=== PATIENT | male | born 1985 | race African-American/Black ===

== ENCOUNTER 2019-09-21 15:42 | Inpatient (IN) | payer SELFPAY ==
[~2019-09-21] VITALS: Ht 172.7 cm; Wt 85.7 kg
[2019-09-21] MEDS ORDERED: IV NORMAL SALINE 1000ML BAG 1,000 ML IV ONE (16:30)
[2019-09-21] MEDS ORDERED: MORPHINE SULFATE 4 MG/ML VIAL. IV ONE (16:30)
[2019-09-21] MEDS ORDERED: ONDANSETRON PF 4 MG/2 ML VIAL. IV ONE (16:30)
[2019-09-21] MEDS ORDERED: CLINDAMYCIN 600MG PREMIX 50 ML IV ONE (16:30)
[2019-09-21] MEDS ORDERED: ACETAMINOPHEN 500 MG TABLET PO ONE (16:30)
--- NOTE | 2019-09-21 16:41 | PHYS DOC ---
Past Medical History Past Medical History: No Pertinent History Alcohol Use: None Drug Use: None Adult General Chief Complaint Chief Complaint: ABSCESS HPI HPI Patient is a 34 year old AA who presents to the ER via EMS. Patient states that yesterday he noticed an abscess developing on his left buttock. Patient states he went to sleep in the sleeper of his semi-and when he woke up this morning around 10 AM felt like he was shaking, dizzy, lightheaded, weak all over, and his entire body ached. He has not taken any medication or to arrival. Patient states that this time he also feels like he has a fever. He currently rates his pain a 9 out of 10 on the pain scale, he denies any alleviating factors. Patient states he has had a small amount of pus drainage from the abscess on his buttock today. He currently denies any chest pain, shortness of breath, palpitations, nausea, vomiting, diarrhea, or abdominal pain. He denies any illicit drug use. All other ROS is neg unless otherwise noted in HPI. Review of Systems Review of Systems See Above Current Medications Current Medications Current Medications Medications (Trade) Dose Ordered Sig/Louis Start Time Stop Time Status Last Admin Dose Admin Acetaminophen (Tylenol) 1,000 mg 1X ONCE 09/21/19 16:30 09/21/19 16:31 DC 09/21/19 16:58 1,000 MG Clindamycin Phosphate 50 ml @ 100 mls/hr 1X ONCE 09/21/19 16:30 09/21/19 16:59 DC 09/21/19 16:56 100 MLS/HR Iohexol (Omnipaque 300 Mg/ml) 75 ml 1X ONCE 09/21/19 18:00 09/21/19 18:01 DC 09/21/19 18:13 75 ML Levofloxacin/ Dextrose 150 ml @ 100 mls/hr 1X ONCE 09/21/19 16:30 09/21/19 17:59 DC 09/21/19 17:26 100 MLS/HR Morphine Sulfate (Morphine Sulfate) 4 mg 1X ONCE 09/21/19 16:30 09/21/19 16:31 DC 09/21/19 16:53 4 MG Ondansetron HCl (Zofran) 4 mg 1X ONCE 09/21/19 16:30 09/21/19 16:31 DC 09/21/19 16:53 4 MG Sodium Chloride 1,000 ml @ 1,000 mls/hr 1X ONCE 09/21/19 16:30 09/21/19 17:29 DC 09/21/19 16:52 1,000 MLS/HR Allergies Allergies Allergies Coded Allergies Type Severity Reaction Last Updated Verified Penicillins Allergy Intermediate 09/21/19 Yes Physical Exam Physical Exam See Above Constitutional: Well developed, well nourished, moderate distress, ill appearance. [] HENT: Normocephalic, atraumatic, bilateral external ears normal, oropharynx moist, no oral exudates, nose normal. [] Eyes: PERRLA, EOMI, conjunctiva normal, no discharge. [] Neck: Normal range of motion, no stridor. [] Cardiovascular:Heart rate regular tachycardic rhythm, no murmur [] Lungs & Thorax: Bilateral breath sounds clear to auscultation, Respirations even and unlabored, no retractions, no respiratory distress [] Skin: Warm, dry; abscess noted to left buttock with central open area draining purulent fluid, area is warm, tender, and fluctuant concerning for perirectal a bscess Extremities: No cyanosis, ROM intact, no edema. [] Neurologic: Alert and oriented X 3, no focal deficits noted. [] Psychologic: Affect anxious, judgement normal, mood normal. [] Current Patient Data Vital Signs Vital Signs Date Time Temp Pulse Resp B/P (MAP) Pulse Ox O2 Delivery O2 Flow Rate FiO2 09/21/19 18:08 106 116/58 (77) 100 Nasal Cannula 2.0 09/21/19 15:42 100.9 18 100.9 Lab Values Laboratory Tests Test 09/21/19 16:35 09/21/19 16:55 White Blood Count 17.5 x10^3/uL (4.0-11.0) H Red Blood Count 4.24 x10^6/uL (4.30-5.70) L Hemoglobin 12.7 g/dL (13.0-17.5) L Hematocrit 37.5 % (39.0-53.0) L Mean Corpuscular Volume 88 fL (79-100) Mean Corpuscular Hemoglobin 30 pg (25-35) Mean Corpuscular Hemoglobin Concent 34 g/dL (31-37) Red Cell Distribution Width 13.1 % (11.5-14.5) Platelet Count 214 x10^3/uL (140-400) Neutrophils (%) (Auto) 89 % (31-73) H Lymphocytes (%) (Auto) 5 % (24-48) L Monocytes (%) (Auto) 5 % (0-9) Eosinophils (%) (Auto) 0 % (0-3) Basophils (%) (Auto) 0 % (0-3) Neutrophils # (Auto) 15.6 x10^3/uL (1.8-7.7) H Lymphocytes # (Auto) 0.9 x10^3/uL (1.0-4.8) L Monocytes # (Auto) 0.9 x10^3/uL (0.0-1.1) Eosinophils # (Auto) 0.0 x10^3/uL (0.0-0.7) Basophils # (Auto) 0.0 x10^3/uL (0.0-0.2) Segmented Neutrophils % 74 % (35-66) H Band Neutrophils % 17 % (0-9) H Lymphocytes % 8 % (24-48) L Monocytes % 1 % (0-10) Toxic Granulation Slight Platelet Estimate Adequate (ADEQUATE) Sodium Level 132 mmol/L (136-145) L Potassium Level 3.5 mmol/L (3.5-5.1) Chloride Level 100 mmol/L (98-107) Carbon Dioxide Level 25 mmol/L (21-32) Anion Gap 7 (6-14) Blood Urea Nitrogen 13 mg/dL (8-26) Creatinine 1.3 mg/dL (0.7-1.3) Estimated GFR (Cockcroft-Gault) 76.5 BUN/Creatinine Ratio 10 (6-20) Glucose Level 121 mg/dL (70-99) H Lactic Acid Level 1.5 mmol/L (0.4-2.0) Calcium Level 8.7 mg/dL (8.5-10.1) Total Bilirubin 1.0 mg/dL (0.2-1.0) Aspartate Amino Transferase (AST) 22 U/L (15-37) Alanine Aminotransferase (ALT) 18 U/L (16-63) Alkaline Phosphatase 52 U/L (46-116) Total Protein 8.8 g/dL (6.4-8.2) H Albumin 3.5 g/dL (3.4-5.0) Albumin/Globulin Ratio 0.7 (1.0-1.7) L Influenza Type A Antigen Negative (NEGATIVE) Influenza Type B Antigen Negative (NEGATIVE) Laboratory Tests 09/21/19 16:35 Laboratory Tests 09/21/19 16:35 EKG EKG 1552- Sinus tach, rate 104, no STEMI read by Dr. Van. [] Radiology/Procedures Radiology/Procedures PROCEDURE: CT ABD PELV W/ IV CONTRST ONLY CT ABD PELV W/ IV CONTRST ONLY Indication: Left buttock abscess. Exposure: One or more of the following individualized dose reduction techniques were utilized for this examination: 1. Automated exposure control 2. Adjustment of the mA and/or kV according to patient size 3. Use of iterative reconstruction technique. Technique: Intravenous contrast was given. No oral contrast per request. There is an: None FINDINGS: Lung bases are clear. Tiny low-density lesion in the anterior right lobe of liver measures less than 1 cm, and is too small to characterize but would most commonly be benign in the absence of risk factors. Spleen upper limits normal in size measuring 12 cm. Pancreas is difficult to distinguish from adjacent unopacified bowel loops but no obvious abnormality. No evidence of adrenal mass. Kidneys demonstrate symmetric enhancement without hydronephrosis or focal mass. No calcified gallstone. Aorta is nonaneurysmal. Incidentally noted is a left retroaortic renal vein. No evidence of pathologic lymph node enlargement. Stomach is not distended. No significant small bowel distention. No evidence of acute colitis. The appendix is not clearly seen. No significant ascites or pneumoperitoneum. Urinary bladder is not adequately distended for evaluation but no gross abnormality. No evidence of pelvic mass. Ill-defined stranding within the left gluteal fat along the midline. No evidence of an organized fluid collection or drainable abscess. Wall thickening of the rectum. Vertebral body height and alignment are intact. IMPRESSION: 1. Rectal wall thickening, could be due to acute inflammation/infection versus chronic. Inflammatory type stranding in the left gluteal subcutaneous fat along the midline, suspicious for cellulitis. No evidence of drainable abscess. 2. Subcentimeter hepatic lesion, nonspecific but would commonly be benign in the absence of other risk factor. [] Course & Med Decision Making Course & Med Decision Making Pertinent Labs and Imaging studies reviewed. (See chart for details) CBC: WBC 17.5, Hgb 12.7, Hct 37.5; CMP Na 132, gluc 121, lactic acid 1.5; influenza negative Pt meets SIRS criteria but not severe sepsis, lactic acid not elevated. VSS. Pt given 750 mg of levaquin IV and 600 mg of Clindamycin in the ER. Also given 1L NS, 4 mg of zofran, and 4 mg of Morphine, and 1 gm of PO Tylenol CT: 1. Rectal wall thickening, could be due to acute inflammation/infection versus chronic. Inflammatory type stranding in the left gluteal subcutaneous fat along the midline, suspicious for cellulitis. No evidence of drainable abscess. 182- Spoke with Dr. Ventura who is the admitting physician, and care was assumed following discussion of patient. Will order a surgical consult. Patient's vital signs stable. Patient remains febrile, ill-appearing, respirations even and unlabored. Patient will be admitted to the med/surg floor. Patient's case and plan of care also discussed with Dr. Roberts and Dr. Van 1831- Spoke with Dr. Garcia and advised of patient, will keep NPO after midnight. ] Dragon Disclaimer Dragon Disclaimer This electronic medical record was generated, in whole or in part, using a voice recognition dictation system. 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
[2019-09-21 16:47] LABS: BASO % 0 % (0-3); EOS % 0 % (0-3); HEMATOCRIT 37.5 % (39.0-53.0); HEMOGLOBIN 12.7 g/dL (13.0-17.5); LYMPH # 0.9 x10^3/uL (1.0-4.8); LYMPH % 5 % (24-48); MEAN CORPUSCULAR HEMOGLOBIN 30 pg (25-35); MEAN CORPUSCULAR HGB CONC 34 g/dL (31-37); MEAN CORPUSCULAR VOLUME 88 fL (79-100); MONO # 0.9 x10^3/uL (0.0-1.1); MONO % 5 % (0-9); NEUT # 15.6 x10^3/uL (1.8-7.7); NEUT % 89 % (31-73); PLATELET COUNT 214 x10^3/uL (140-400); RED BLOOD COUNT 4.24 x10^6/uL (4.30-5.70); RED CELL DISTRIBUTION WIDTH 13.1 % (11.5-14.5); WHITE BLOOD COUNT 17.5 x10^3/uL (4.0-11.0)
[2019-09-21 17:08] LABS: ALBUMIN 3.5 g/dL (3.4-5.0); ALBUMIN/GLOBULIN RATIO 0.7 (1.0-1.7); CALCIUM 8.7 mg/dL (8.5-10.1); CREATININE 1.3 mg/dL (0.7-1.3); GFR 76.5; POTASSIUM 3.5 mmol/L (3.5-5.1); TOTAL PROTEIN 8.8 g/dL (6.4-8.2)
[2019-09-21 17:12] LABS: % BANDS 17 % (0-9); % LYMPHS 8 % (24-48); % MONOS 1 % (0-10); % SEGS 74 % (35-66)
[2019-09-21 17:13] LABS: PLT ESTIMATE ADEQUATE (ADEQUATE); TOXIC GRANULATION SLIGHT
[2019-09-21 17:20] LABS: INFLUENZA A PATIENT NEGATIVE (NEGATIVE); INFLUENZA B PATIENT NEGATIVE (NEGATIVE)
[2019-09-21] MEDS ORDERED: IOHEXOL 300 MG/ML 100ML VIAL. IV ONE (18:00)
--- NOTE | 2019-09-21 18:31 | RAD ---
CT ABD PELV W/ IV CONTRST ONLY Indication: Left buttock abscess. Exposure: One or more of the following individualized dose reduction techniques were utilized for this examination: 1. Automated exposure control 2. Adjustment of the mA and/or kV according to patient size 3. Use of iterative reconstruction technique. Technique: Intravenous contrast was given. No oral contrast per request. There is an: None FINDINGS: Lung bases are clear. Tiny low-density lesion in the anterior right lobe of liver measures less than 1 cm, and is too small to characterize but would most commonly be benign in the absence of risk factors. Spleen upper limits normal in size measuring 12 cm. Pancreas is difficult to distinguish from adjacent unopacified bowel loops but no obvious abnormality. No evidence of adrenal mass. Kidneys demonstrate symmetric enhancement without hydronephrosis or focal mass. No calcified gallstone. Aorta is nonaneurysmal. Incidentally noted is a left retroaortic renal vein. No evidence of pathologic lymph node enlargement. Stomach is not distended. No significant small bowel distention. No evidence of acute colitis. The appendix is not clearly seen. No significant ascites or pneumoperitoneum. Urinary bladder is not adequately distended for evaluation but no gross abnormality. No evidence of pelvic mass. Ill-defined stranding within the left gluteal fat along the midline. No evidence of an organized fluid collection or drainable abscess. Wall thickening of the rectum. Vertebral body height and alignment are intact. IMPRESSION: 1. Rectal wall thickening, could be due to acute inflammation/infection versus chronic. Inflammatory type stranding in the left gluteal subcutaneous fat along the midline, suspicious for cellulitis. No evidence of drainable abscess. 2. Subcentimeter hepatic lesion, nonspecific but would commonly be benign in the absence of other risk factor. Electronically signed by: Gregory Castro MD (09/21/2019 6:28 PM) [facility]
[2019-09-21] MEDS ORDERED: ONDANSETRON PF 4 MG/2 ML VIAL. IV PRN (19:00)
[2019-09-21 19:12] LABS: BILIRUBIN,URINE NEGATIVE (NEG); CLARITY,URINE CLEAR; COLOR,URINE YELLOW; NITRITE,URINE NEGATIVE (NEG); PH,URINE 8.5; PROTEIN,URINE NEGATIVE (NEG-TRACE)
[2019-09-21 19:19] LABS: BARBITURATES NEG (NEG); BENZODIAZEPINES NEG (NEG); CANNABINOIDS NEG (NEG); COCAINE NEG (NEG); METHADONE NEG (NEG); OPIATES POS (NEG); PHENCYCLIDINE NEG (NEG)
[2019-09-21 19:22] LABS: AMPHETAMINE/METHAMPHETAMINE NEG (NEG); BACTERIA,URINE 0 /HPF (0-FEW); RBC,URINE OCC /HPF (0-2); SQUAMOUS EPITHELIAL CELL,UR OCC /LPF
[2019-09-21 19:40] VITALS: BP 114/70
[2019-09-21] MEDS: MORPHINE SULFATE 4 MG/ML VIAL. IV PRN (20:16)
--- NOTE | 2019-09-21 20:48 | NUR ---
The patient, VITALIY HERNÁNDEZ, 34 y/o, M admitted by YOHANA BETH MD, was given written information regarding hospital policies, unit procedures and contact persons. Pt. arrived on unit by wheelchair from ER. He is A&Ox4, on 2L NC but took it off when he got in bed. VSS. Call light within reach and bed in lowest position. Admission assessment done at this time. Will continue to monitor. Addendum: 09/21/19 at 2049 by HUGO YORK RN Pt. arrived at 1949.
[2019-09-21] MEDS: IV NORMAL SALINE 1000ML BAG 1,000 ML IV SCH (22:49)
[2019-09-21] MEDS: NICOTINE 7MG PATCH. TD SCH (22:49)
[2019-09-21 23:00] VITALS: BP 96/49
[2019-09-21] MEDS: CLINDAMYCIN 600MG PREMIX 50 ML IV SCH (23:33)
[2019-09-22] VITALS (13 sets, daily range): BP systolic 82–137; BP diastolic 38–97
[2019-09-22] MEDS: MORPHINE SULFATE 4 MG/ML VIAL. IV PRN ×3 (00:06→08:57)
--- NOTE | 2019-09-22 03:50 | NUR ---
Pt. had positive sepsis screen d/t low blood pressure. Sepsis screen protocol was started in ER. Blood pressure came up after about 20 minutes. Will continue to monitor.
[2019-09-22] MEDS: CLINDAMYCIN 600MG PREMIX 50 ML IV SCH (05:20)
[2019-09-22] MEDS: ACETAMINOPHEN 325 MG TABLET. PO PRN ×2 (05:21→20:29)
[2019-09-22] MEDS: IV NORMAL SALINE 1000ML BAG 1,000 ML IV SCH ×3 (05:22→14:06)
--- NOTE | 2019-09-22 07:50 | NUR ---
Pt.'s pharmacy is [facility] [place] [address]. RN was unable to find it in registry.
[2019-09-22] MEDS: NICOTINE 7MG PATCH. TD SCH (08:57)
[2019-09-22] MEDS ORDERED: IV RINGERS,LACTATED 1000ML 1,000 ML IV SCH (08:57)
[2019-09-22] MEDS ORDERED: HYDROmorphone 2 MG/ML VIAL IV PRN (09:00)
[2019-09-22] MEDS ORDERED: MORPHINE SULFATE 2 MG/ML VIAL. IV PRN (09:00)
[2019-09-22] MEDS ORDERED: FLU VAX QS 2019-20 (36MOS+)/PF 0.5 ML SYRINGE. VAX IM ONE (09:00)
[2019-09-22] MEDS ORDERED: PROCHLORPERAZINE 10 MG/2 ML VIAL. IV PRN (09:00)
[2019-09-22] MEDS ORDERED: fentaNYL PF VIAL 100 MCG/2 ML VIAL IV PRN ×2 (09:00)
[2019-09-22] MEDS ORDERED: IV NORMAL SALINE 1000ML BAG 2,040 ML IV SCH (09:07)
--- NOTE | 2019-09-22 09:08 | PDOC1 ---
History and Physical Date of Admission Date of Admission DATE: 09/22/19 TIME: 09:03 Identification/Chief Complaint Chief Complaint seen in er , 34 year old AA who presents to the ER via EMS. Patient states that on 09/20 he noticed an abscess developing on his left buttock. Patient states he went to sleep in the sleeper of his semi-and when he woke up 09/21 around 10 AM felt like he was shaking, dizzy, lightheaded, weak all over, and his entire body ached. He has not taken any medication or to arrival. Patient states that this time he also feels like he has a fever to OR TODAY FOR possible drainage of abscess Past Medical History Past Medical History Past Medical History Past Medical History: No Pertinent History Alcohol Use: None Drug Use: None Family History Family History: Hypertension Social History Smoke: <1 pack per day ALCOHOL: occassional Drugs: None Current Problem List Problem List Problems Medical Problems: (1) Cellulitis and abscess of buttock Status: Acute (2) Fever Status: Acute (3) Sepsis Status: Acute Current Medications Current Medications Current Medications Levofloxacin/ Dextrose 150 ml @ 100 mls/hr 1X ONCE IV Last administered on 09/21/19at 17:26; Start 09/21/19 at 16:30; Stop 09/21/19 at 17:59; Status DC Clindamycin Phosphate 50 ml @ 100 mls/hr 1X ONCE IV Last administered on 09/21/19at 16:56; Start 09/21/19 at 16:30; Stop 09/21/19 at 16:59; Status DC Morphine Sulfate (Morphine Sulfate) 4 mg 1X ONCE IV Last administered on 09/21/19at 16:53; Start 09/21/19 at 16:30; Stop 09/21/19 at 16:31; Status DC Acetaminophen (Tylenol) 1,000 mg 1X ONCE PO Last administered on 09/21/19at 16:58; Start 09/21/19 at 16:30; Stop 09/21/19 at 16:31; Status DC Sodium Chloride 1,000 ml @ 1,000 mls/hr 1X ONCE IV Last administered on 09/21at 16:52; Start 09/21/19 at 16:30; Stop 09/21/19 at 17:29; Status DC Ondansetron HCl (Zofran) 4 mg 1X ONCE IV Last administered on 09/21/19at 16:53; Start 09/21/19 at 16:30; Stop 09/21/19 at 16:31; Status DC Iohexol (Omnipaque 300 Mg/ml) 75 ml 1X ONCE IV Last administered on 09/21/19at 18:13; Start 09/21/19 at 18:00; Stop 09/21/19 at 18:01; Status DC Ondansetron HCl (Zofran) 4 mg PRN Q8HRS PRN IV NAUSEA/VOMITING Last administered on 09/22/19at 05:21; Start 09/21/19 at 19:00; Stop 09/22/19 at 18:59 Morphine Sulfate (Morphine Sulfate) 4 mg PRN Q2HR PRN IV PAIN Last administered on 09/22/19at 08:57; Start 09/21/19 at 19:00; Stop 09/22/19 at 18:59 Influenza Virus Vaccine Quadrival (Afluria Quad 2019-20 (3yr Up) Syringe) 0.5 ml ONCE ONCE VAX IM ; Start 09/22/19 at 09:00; Stop 09/22/19 at 09:01; Status DC Clindamycin Phosphate 50 ml @ 100 mls/hr Q6HRS IV Last administered on 09/22/19at 05:20; Start 09/22/19 at 00:00 Levofloxacin/ Dextrose 150 ml @ 100 mls/hr Q24H IV ; Start 09/22/19 at 17:30 Sodium Chloride 1,000 ml @ 125 mls/hr Q8H IV Last administered on 09/22/19at 05:22; Start 09/21/19 at 21:00 Nicotine (Nicoderm Cq 7mg) 1 patch DAILY TD Last administered on 09/22/19at 08:57; Start 09/21/19 at 21:00 Acetaminophen (Tylenol) 650 mg PRN Q6HRS PRN PO fever Last administered on 09/22/19at 05:21; Start 09/22/19 at 04:30 Fentanyl Citrate (Fentanyl 2ml Vial) 25 mcg PRN Q5MIN PRN IV MILD PAIN 1-3; Start 09/22/19 at 09:00; Stop 09/23/19 at 08:59 Fentanyl Citrate (Fentanyl 2ml Vial) 50 mcg PRN Q5MIN PRN IV MODERATE TO SEVERE PAIN; Start 09/22/19 at 09:00; Stop 09/23/19 at 08:59; Status UNV Morphine Sulfate (Morphine Sulfate) 1 mg PRN Q10MIN PRN IV SEVERE PAIN 7-10; Start 09/22/19 at 09:00; Stop 09/23/19 at 08:59; Status UNV Ringer's Solution 1,000 ml @ 30 mls/hr Q24H IV ; Start 09/22/19 at 08:57; Stop 09/22/19 at 20:56; Status UNV Hydromorphone HCl (Dilaudid) 0.5 mg PRN Q10MIN PRN IV SEV PAIN, Second choice; Start 09/22/19 at 09:00; Stop 09/23/19 at 08:59; Status UNV Prochlorperazine Edisylate (Compazine) 5 mg PACU PRN PRN IV NAUSEA, MRX1; Start 09/22/19 at 09:00; Stop 09/23/19 at 08:59; Status UNV Active Scripts Active Reported No Known Medications Prior To Admisstion (Info) Each 1 Each MC 1X Allergies Allergies: Coded Allergies: Penicillins (Verified Allergy, Intermediate, 09/21/19) Physical Exam Physical Exam HENT: Normocephalic, atraumatic, bilateral external ears normal, oropharynx moist, no oral exudates, nose normal. [] Eyes: PERRLA, EOMI, conjunctiva normal, no discharge. [] Neck: Normal range of motion, no stridor. [] Cardiovascular:Heart rate regular tachycardic rhythm, no murmur [] Lungs & Thorax: Bilateral breath sounds clear to auscultation, Respirations even and unlabored, no retractions, no respiratory distress [] Skin: Warm, dry; abscess noted to left buttock with central open area draining purulent fluid, area is warm, tender, and fluctuant concerning for perirectal abscess Extremities: No cyanosis, ROM intact, no edema. [] Neurologic: Alert and oriented X 3, no focal deficits noted. [] Psychologic: Affect anxious, judgement normal, mood normal. [] General: Alert, Oriented X3, Cooperative Lungs: Clear to auscultation Heart: RRR Breasts: Not examined Abdomen: Soft Rectal Exam: not examined Extremities: No cyanosis, No edema Neuro: Normal speech, Cranial nerves 3-12 NL Psych/Mental Status: Mental status NL, Mood NL Vitals Vitals Vital Signs Date Time Temp Pulse Resp B/P (MAP) Pulse Ox O2 Delivery O2 Flow Rate FiO2 09/22/19 08:57 20 100 Room Air 09/22/19 07:00 99.0 62 87/46 (60) 99.0 09/21/19 19:38 2.0 Labs Labs Laboratory Tests Test 09/21/19 16:35 09/21/19 16:55 09/21/19 19:05 White Blood Count 17.5 x10^3/uL (4.0-11.0) Red Blood Count 4.24 x10^6/uL (4.30-5.70) Hemoglobin 12.7 g/dL (13.0-17.5) Hematocrit 37.5 % (39.0-53.0) Mean Corpuscular Volume 88 fL (79-100) Mean Corpuscular Hemoglobin 30 pg (25-35) Mean Corpuscular Hemoglobin Concent 34 g/dL (31-37) Red Cell Distribution Width 13.1 % (11.5-14.5) Platelet Count 214 x10^3/uL (140-400) Neutrophils (%) (Auto) 89 % (31-73) Lymphocytes (%) (Auto) 5 % (24-48) Monocytes (%) (Auto) 5 % (0-9) Eosinophils (%) (Auto) 0 % (0-3) Basophils (%) (Auto) 0 % (0-3) Neutrophils # (Auto) 15.6 x10^3/uL (1.8-7.7) Lymphocytes # (Auto) 0.9 x10^3/uL (1.0-4.8) Monocytes # (Auto) 0.9 x10^3/uL (0.0-1.1) Eosinophils # (Auto) 0.0 x10^3/uL (0.0-0.7) Basophils # (Auto) 0.0 x10^3/uL (0.0-0.2) Segmented Neutrophils % 74 % (35-66) Band Neutrophils % 17 % (0-9) Lymphocytes % 8 % (24-48) Monocytes % 1 % (0-10) Toxic Granulation Slight Platelet Estimate Adequate (ADEQUATE) Sodium Level 132 mmol/L (136-145) Potassium Level 3.5 mmol/L (3.5-5.1) Chloride Level 100 mmol/L (98-107) Carbon Dioxide Level 25 mmol/L (21-32) Anion Gap 7 (6-14) Blood Urea Nitrogen 13 mg/dL (8-26) Creatinine 1.3 mg/dL (0.7-1.3) Estimated GFR (Cockcroft-Gault) 76.5 BUN/Creatinine Ratio 10 (6-20) Glucose Level 121 mg/dL (70-99) Lactic Acid Level 1.5 mmol/L (0.4-2.0) Calcium Level 8.7 mg/dL (8.5-10.1) Total Bilirubin 1.0 mg/dL (0.2-1.0) Aspartate Amino Transf (AST/SGOT) 22 U/L (15-37) Alanine Aminotransferase (ALT/SGPT) 18 U/L (16-63) Alkaline Phosphatase 52 U/L (46-116) Total Protein 8.8 g/dL (6.4-8.2) Albumin 3.5 g/dL (3.4-5.0) Albumin/Globulin Ratio 0.7 (1.0-1.7) Influenza Type A Antigen Negative (NEGATIVE) Influenza Type B Antigen Negative (NEGATIVE) Urine Collection Type Unknown Urine Color Yellow Urine Clarity Clear Urine pH 8.5 Urine Specific Brumley 1.020 Urine Protein Negative mg/dL (NEG-TRACE) Urine Glucose (UA) Negative mg/dL (NEG) Urine Ketones (Stick) Trace mg/dL (NEG) Urine Blood Negative (NEG) Urine Nitrite Negative (NEG) Urine Bilirubin Negative (NEG) Urine Urobilinogen Dipstick 1.0 mg/dL (0.2 mg/dL) Urine Leukocyte Esterase Small (NEG) Urine RBC Occ /HPF (0-2) Urine WBC 5-10 /HPF (0-4) Urine Squamous Epithelial Cells Occ /LPF Urine Bacteria 0 /HPF (0-FEW) Urine Mucus Slight /LPF Urine Opiates Screen Pos (NEG) Urine Methadone Screen Neg (NEG) Urine Barbiturates Neg (NEG) Urine Phencyclidine Screen Neg (NEG) Urine Amphetamine/Methamphetamine Neg (NEG) Urine Benzodiazepines Screen Neg (NEG) Urine Cocaine Screen Neg (NEG) Urine Cannabinoids Screen Neg (NEG) Urine Ethyl Alcohol Neg (NEG) Laboratory Tests Test 09/21/19 16:35 09/21/19 16:55 09/21/19 19:05 White Blood Count 17.5 x10^3/uL (4.0-11.0) Red Blood Count 4.24 x10^6/uL (4.30-5.70) Hemoglobin 12.7 g/dL (13.0-17.5) Hematocrit 37.5 % (39.0-53.0) Mean Corpuscular Volume 88 fL (79-100) Mean Corpuscular Hemoglobin 30 pg (25-35) Mean Corpuscular Hemoglobin Concent 34 g/dL (31-37) Red Cell Distribution Width 13.1 % (11.5-14.5) Platelet Count 214 x10^3/uL (140-400) Neutrophils (%) (Auto) 89 % (31-73) Lymphocytes (%) (Auto) 5 % (24-48) Monocytes (%) (Auto) 5 % (0-9) Eosinophils (%) (Auto) 0 % (0-3) Basophils (%) (Auto) 0 % (0-3) Neutrophils # (Auto) 15.6 x10^3/uL (1.8-7.7) Lymphocytes # (Auto) 0.9 x10^3/uL (1.0-4.8) Monocytes # (Auto) 0.9 x10^3/uL (0.0-1.1) Eosinophils # (Auto) 0.0 x10^3/uL (0.0-0.7) Basophils # (Auto) 0.0 x10^3/uL (0.0-0.2) Segmented Neutrophils % 74 % (35-66) Band Neutrophils % 17 % (0-9) Lymphocytes % 8 % (24-48) Monocytes % 1 % (0-10) Toxic Granulation Slight Platelet Estimate Adequate (ADEQUATE) Sodium Level 132 mmol/L (136-145) Potassium Level 3.5 mmol/L (3.5-5.1) Chloride Level 100 mmol/L (98-107) Carbon Dioxide Level 25 mmol/L (21-32) Anion Gap 7 (6-14) Blood Urea Nitrogen 13 mg/dL (8-26) Creatinine 1.3 mg/dL (0.7-1.3) Estimated GFR (Cockcroft-Gault) 76.5 BUN/Creatinine Ratio 10 (6-20) Glucose Level 121 mg/dL (70-99) Lactic Acid Level 1.5 mmol/L (0.4-2.0) Calcium Level 8.7 mg/dL (8.5-10.1) Total Bilirubin 1.0 mg/dL (0.2-1.0) Aspartate Amino Transf (AST/SGOT) 22 U/L (15-37) Alanine Aminotransferase (ALT/SGPT) 18 U/L (16-63) Alkaline Phosphatase 52 U/L (46-116) Total Protein 8.8 g/dL (6.4-8.2) Albumin 3.5 g/dL (3.4-5.0) Albumin/Globulin Ratio 0.7 (1.0-1.7) Influenza Type A Antigen Negative (NEGATIVE) Influenza Type B Antigen Negative (NEGATIVE) Urine Collection Type Unknown Urine Color Yellow Urine Clarity Clear Urine pH 8.5 Urine Specific Brumley 1.020 Urine Protein Negative mg/dL (NEG-TRACE) Urine Glucose (UA) Negative mg/dL (NEG) Urine Ketones (Stick) Trace mg/dL (NEG) Urine Blood Negative (NEG) Urine Nitrite Negative (NEG) Urine Bilirubin Negative (NEG) Urine Urobilinogen Dipstick 1.0 mg/dL (0.2 mg/dL) Urine Leukocyte Esterase Small (NEG) Urine RBC Occ /HPF (0-2) Urine WBC 5-10 /HPF (0-4) Urine Squamous Epithelial Cells Occ /LPF Urine Bacteria 0 /HPF (0-FEW) Urine Mucus Slight /LPF Urine Opiates Screen Pos (NEG) Urine Methadone Screen Neg (NEG) Urine Barbiturates Neg (NEG) Urine Phencyclidine Screen Neg (NEG) Urine Amphetamine/Methamphetamine Neg (NEG) Urine Benzodiazepines Screen Neg (NEG) Urine Cocaine Screen Neg (NEG) Urine Cannabinoids Screen Neg (NEG) Urine Ethyl Alcohol Neg (NEG) Images Images CT ABD PELV W/ IV CONTRST ONLY Indication: Left buttock abscess. Exposure: One or more of the following individualized dose reduction techniques were utilized for this examination: 1. Automated exposure control 2. Adjustment of the mA and/or kV according to patient size 3. Use of iterative reconstruction technique. Technique: Intravenous contrast was given. No oral contrast per request. There is an: None FINDINGS: Lung bases are clear. Tiny low-density lesion in the anterior right lobe of liver measures less than 1 cm, and is too small to characterize but would most commonly be benign in the absence of risk factors. Spleen upper limits normal in size measuring 12 cm. Pancreas is difficult to distinguish from adjacent unopacified bowel loops but no obvious abnormality. No evidence of adrenal mass. Kidneys demonstrate symmetric enhancement without hydronephrosis or focal mass. No calcified gallstone. Aorta is nonaneurysmal. Incidentally noted is a left retroaortic renal vein. No evidence of pathologic lymph node enlargement. Stomach is not distended. No significant small bowel distention. No evidence of acute colitis. The appendix is not clearly seen. No significant ascites or pneumoperitoneum. Urinary bladder is not adequately distended for evaluation but no gross abnormality. No evidence of pelvic mass. Ill-defined stranding within the left gluteal fat along the midline. No evidence of an organized fluid collection or drainable abscess. Wall thickening of the rectum. Vertebral body height and alignment are intact. IMPRESSION: 1. Rectal wall thickening, could be due to acute inflammation/infection versus chronic. Inflammatory type stranding in the left gluteal subcutaneous fat along the midline, suspicious for cellulitis. No evidence of drainable abscess. 2. Subcentimeter hepatic lesion, nonspecific but would commonly be benign in the absence of other risk factor. Electronically signed by: Philipp Castro MD (09/21/2019 6:28 PM) [facility] DICTATED and SIGNED BY: PHILIPP CASTRO MD DATE: 09/21/19 182 VTE Prophylaxis Ordered VTE Prophylaxis Devices: No VTE Pharmacological Prophylaxi: Yes Assessment/Plan Assessment/Plan IMPRESSION: 1. Rectal wall thickening, acute inflammation/infection versus chronic. Inflammatory type stranding in the left gluteal subcutaneous fat along the midline, suspicious for cellulitis. 2. Subcentimeter hepatic lesion, nonspecific but would commonly be benign in the absence of other risk factor. 3. fever 4. sepsis as evidenced by hypotension, leukocytosis, fever incision and drainage of perirectal abscess 1/2 Surgeon Eric Anesthesia Type: General Blood Loss 10cc plan admit iv antibiotics, merem gen surgery consult /// to OR for rigid proctoscopy (rectal wall thickening noted on CT), incision and drainage left gluteal fullness blood cultures sepsis protocol dvt prophylaxis ID CONSULT 74 min pt exam, chart review, > 50% of time spent with exam, chart review, pt care coordination YOHANA BETH MD Sep 22, 2019 09:08
--- NOTE | 2019-09-22 09:12 | PDOC2 ---
KAROLINA HEAD LOTTERY OFFICE MANAGER 09/22/19 0912: CONSULT Date of Consult Date of Consult DATE: 09/22/19 TIME: 09:06 Reason for Consult Reason for Consult: perirectal abscess Referring Physician Referring Physician: ER Identification/Chief Complaint Chief Complaint gluteal pain Source Source: Chart review, Patient History of Present Illness Reason for Visit: few days of gluteal pain. Did have some purulent drainage, has since stopped. Feels that the swelling continues to get worse. No history of skin infections. Pain to area is significant He has had some low grade fevers, low BP, and elevated WBC Past Medical History Past Medical History no pertinent hx Past Surgical History Past Surgical History: No pertinent history Family History Family History: Other (noncontributory to current illness ) Social History <1 pack per day ALCOHOL: none Drugs: None Lives: Alone Current Problem List Problem List Problems Medical Problems: (1) Cellulitis and abscess of buttock Status: Acute (2) Fever Status: Acute (3) Sepsis Status: Acute Current Medications Current Medications Current Medications Levofloxacin/ Dextrose 150 ml @ 100 mls/hr 1X ONCE IV Last administered on 09/21/19at 17:26; Start 09/21/19 at 16:30; Stop 09/21/19 at 17:59; Status DC Clindamycin Phosphate 50 ml @ 100 mls/hr 1X ONCE IV Last administered on 09/21/19at 16:56; Start 09/21/19 at 16:30; Stop 09/21/19 at 16:59; Status DC Morphine Sulfate (Morphine Sulfate) 4 mg 1X ONCE IV Last administered on 09/21/19at 16:53; Start 09/21/19 at 16:30; Stop 09/21/19 at 16:31; Status DC Acetaminophen (Tylenol) 1,000 mg 1X ONCE PO Last administered on 09/21/19at 16:58; Start 09/21/19 at 16:30; Stop 09/21/19 at 16:31; Status DC Sodium Chloride 1,000 ml @ 1,000 mls/hr 1X ONCE IV Last administered on 09/21/19at 16:52; Start 09/21/19 at 16:30; Stop 09/21/19 at 17:29; Status DC Ondansetron HCl (Zofran) 4 mg 1X ONCE IV Last administered on 09/21/19at 16:53; Start 09/21/19 at 16:30; Stop 09/21/19 at 16:31; Status DC Iohexol (Omnipaque 300 Mg/ml) 75 ml 1X ONCE IV Last administered on 09/21/19at 18:13; Start 09/21/19 at 18:00; Stop 09/21/19 at 18:01; Status DC Ondansetron HCl (Zofran) 4 mg PRN Q8HRS PRN IV NAUSEA/VOMITING Last administered on 09/22/19at 05:21; Start 09/21/19 at 19:00; Stop 09/22/19 at 18:59 Morphine Sulfate (Morphine Sulfate) 4 mg PRN Q2HR PRN IV PAIN Last administered on 09/22/19at 08:57; Start 09/21/19 at 19:00; Stop 09/22/19 at 18:59 Influenza Virus Vaccine Quadrival (Afluria Quad 2019-20 (3yr Up) Syringe) 0.5 ml ONCE ONCE VAX IM ; Start 09/22/19 at 09:00; Stop 09/22/19 at 09:01; Status DC Clindamycin Phosphate 50 ml @ 100 mls/hr Q6HRS IV Last administered on 09/22/19at 05:20; Start 09/22/19 at 00:00 Levofloxacin/ Dextrose 150 ml @ 100 mls/hr Q24H IV ; Start 09/22/19 at 17:30 Sodium Chloride 1,000 ml @ 125 mls/hr Q8H IV Last administered on 09/22/19at 05:22; Start 09/21/19 at 21:00 Nicotine (Nicoderm Cq 7mg) 1 patch DAILY TD Last administered on 09/22/19at 08:57; Start 09/21/19 at 21:00 Acetaminophen (Tylenol) 650 mg PRN Q6HRS PRN PO fever Last administered on 09/22/19at 05:21; Start 09/22/19 at 04:30 Fentanyl Citrate (Fentanyl 2ml Vial) 25 mcg PRN Q5MIN PRN IV MILD PAIN 1-3; Start 09/22/19 at 09:00; Stop 09/23/19 at 08:59 Fentanyl Citrate (Fentanyl 2ml Vial) 50 mcg PRN Q5MIN PRN IV MODERATE TO SEVERE PAIN; Start 09/22/19 at 09:00; Stop 09/23/19 at 08:59 Morphine Sulfate (Morphine Sulfate) 1 mg PRN Q10MIN PRN IV SEVERE PAIN 7-10; Start 09/22/19 at 09:00; Stop 09/23/19 at 08:59 Ringer's Solution 1,000 ml @ 30 mls/hr Q24H IV ; Start 09/22/19 at 08:57; Stop 09/22/19 at 20:56 Hydromorphone HCl (Dilaudid) 0.5 mg PRN Q10MIN PRN IV SEV PAIN, Second choice; Start 09/22/19 at 09:00; Stop 09/23/19 at 08:59 Prochlorperazine Edisylate (Compazine) 5 mg PACU PRN PRN IV NAUSEA, MRX1; Start 09/22/19 at 09:00; Stop 09/23/19 at 08:59 Active Scripts Active Reported No Known Medications Prior To Admisstion (Info) Each 1 Each MC 1X Allergies Allergies: Coded Allergies: Penicillins (Verified Allergy, Intermediate, 09/21/19) ROS General: YES: Chills, Fatigue PSYCHOLOGICAL ROS: No: Anxiety, Depression Eyes: No Blurry vision, No Double vision HEENT: No: Heacaches, Sore Throat Hematological and Lymphatic: No: Bleeding Problems, Blood Clots Respiratory: No: Cough, Shortness of breath Cardiovascular: No Chest Pain, No Palpitations Gastrointestinal: No Nausea, No Vomiting Genitourinary: No Dysuria, No Hematuria Musculoskeletal: Yes Muscle Pain; No Joint Pain Neurological: No Impaired Coord/balance, No Numbness/Tingling Skin: Yes Other (see hpi) Physical Exam General: Alert, Oriented X3, Cooperative, No acute distress HEENT: Atraumatic, PERRLA Lungs: Clear to auscultation, Normal air movement Heart: Regular rate, Normal S1, Normal S2 Abdomen: Soft, No tenderness Extremities: No clubbing, No cyanosis Skin: Other (left perirectal area--induration, tenderness, area where wound opened, now sealed stil soft) Neuro: Normal gait, Normal speech Psych/Mental Status: Mental status NL, Mood NL MUSCULOSKELETAL: No deformity, No swelling Vitals VITALS Vital Signs Date Time Temp Pulse Resp B/P (MAP) Pulse Ox O2 Delivery O2 Flow Rate FiO2 09/22/19 08:57 20 100 Room Air 09/22/19 07:00 99.0 62 87/46 (60) 99.0 09/21/19 19:38 2.0 Labs Labs Laboratory Tests Test 09/21/19 16:35 09/21/19 16:55 09/21/19 19:05 White Blood Count 17.5 x10^3/uL (4.0-11.0) Red Blood Count 4.24 x10^6/uL (4.30-5.70) Hemoglobin 12.7 g/dL (13.0-17.5) Hematocrit 37.5 % (39.0-53.0) Mean Corpuscular Volume 88 fL (79-100) Mean Corpuscular Hemoglobin 30 pg (25-35) Mean Corpuscular Hemoglobin Concent 34 g/dL (31-37) Red Cell Distribution Width 13.1 % (11.5-14.5) Platelet Count 214 x10^3/uL (140-400) Neutrophils (%) (Auto) 89 % (31-73) Lymphocytes (%) (Auto) 5 % (24-48) Monocytes (%) (Auto) 5 % (0-9) Eosinophils (%) (Auto) 0 % (0-3) Basophils (%) (Auto) 0 % (0-3) Neutrophils # (Auto) 15.6 x10^3/uL (1.8-7.7) Lymphocytes # (Auto) 0.9 x10^3/uL (1.0-4.8) Monocytes # (Auto) 0.9 x10^3/uL (0.0-1.1) Eosinophils # (Auto) 0.0 x10^3/uL (0.0-0.7) Basophils # (Auto) 0.0 x10^3/uL (0.0-0.2) Segmented Neutrophils % 74 % (35-66) Band Neutrophils % 17 % (0-9) Lymphocytes % 8 % (24-48) Monocytes % 1 % (0-10) Toxic Granulation Slight Platelet Estimate Adequate (ADEQUATE) Sodium Level 132 mmol/L (136-145) Potassium Level 3.5 mmol/L (3.5-5.1) Chloride Level 100 mmol/L (98-107) Carbon Dioxide Level 25 mmol/L (21-32) Anion Gap 7 (6-14) Blood Urea Nitrogen 13 mg/dL (8-26) Creatinine 1.3 mg/dL (0.7-1.3) Estimated GFR (Cockcroft-Gault) 76.5 BUN/Creatinine Ratio 10 (6-20) Glucose Level 121 mg/dL (70-99) Lactic Acid Level 1.5 mmol/L (0.4-2.0) Calcium Level 8.7 mg/dL (8.5-10.1) Total Bilirubin 1.0 mg/dL (0.2-1.0) Aspartate Amino Transf (AST/SGOT) 22 U/L (15-37) Alanine Aminotransferase (ALT/SGPT) 18 U/L (16-63) Alkaline Phosphatase 52 U/L (46-116) Total Protein 8.8 g/dL (6.4-8.2) Albumin 3.5 g/dL (3.4-5.0) Albumin/Globulin Ratio 0.7 (1.0-1.7) Influenza Type A Antigen Negative (NEGATIVE) Influenza Type B Antigen Negative (NEGATIVE) Urine Collection Type Unknown Urine Color Yellow Urine Clarity Clear Urine pH 8.5 Urine Specific [place] 1.020 Urine Protein Negative mg/dL (NEG-TRACE) Urine Glucose (UA) Negative mg/dL (NEG) Urine Ketones (Stick) Trace mg/dL (NEG) Urine Blood Negative (NEG) Urine Nitrite Negative (NEG) Urine Bilirubin Negative (NEG) Urine Urobilinogen Dipstick 1.0 mg/dL (0.2 mg/dL) Urine Leukocyte Esterase Small (NEG) Urine RBC Occ /HPF (0-2) Urine WBC 5-10 /HPF (0-4) Urine Squamous Epithelial Cells Occ /LPF Urine Bacteria 0 /HPF (0-FEW) Urine Mucus Slight /LPF Urine Opiates Screen Pos (NEG) Urine Methadone Screen Neg (NEG) Urine Barbiturates Neg (NEG) Urine Phencyclidine Screen Neg (NEG) Urine Amphetamine/Methamphetamine Neg (NEG) Urine Benzodiazepines Screen Neg (NEG) Urine Cocaine Screen Neg (NEG) Urine Cannabinoids Screen Neg (NEG) Urine Ethyl Alcohol Neg (NEG) Laboratory Tests Test 09/21/19 16:35 09/21/19 16:55 09/21/19 19:05 White Blood Count 17.5 x10^3/uL (4.0-11.0) Red Blood Count 4.24 x10^6/uL (4.30-5.70) Hemoglobin 12.7 g/dL (13.0-17.5) Hematocrit 37.5 % (39.0-53.0) Mean Corpuscular Volume 88 fL (79-100) Mean Corpuscular Hemoglobin 30 pg (25-35) Mean Corpuscular Hemoglobin Concent 34 g/dL (31-37) Red Cell Distribution Width 13.1 % (11.5-14.5) Platelet Count 214 x10^3/uL (140-400) Neutrophils (%) (Auto) 89 % (31-73) Lymphocytes (%) (Auto) 5 % (24-48) Monocytes (%) (Auto) 5 % (0-9) Eosinophils (%) (Auto) 0 % (0-3) Basophils (%) (Auto) 0 % (0-3) Neutrophils # (Auto) 15.6 x10^3/uL (1.8-7.7) Lymphocytes # (Auto) 0.9 x10^3/uL (1.0-4.8) Monocytes # (Auto) 0.9 x10^3/uL (0.0-1.1) Eosinophils # (Auto) 0.0 x10^3/uL (0.0-0.7) Basophils # (Auto) 0.0 x10^3/uL (0.0-0.2) Segmented Neutrophils % 74 % (35-66) Band Neutrophils % 17 % (0-9) Lymphocytes % 8 % (24-48) Monocytes % 1 % (0-10) Toxic Granulation Slight Platelet Estimate Adequate (ADEQUATE) Sodium Level 132 mmol/L (136-145) Potassium Level 3.5 mmol/L (3.5-5.1) Chloride Level 100 mmol/L (98-107) Carbon Dioxide Level 25 mmol/L (21-32) Anion Gap 7 (6-14) Blood Urea Nitrogen 13 mg/dL (8-26) Creatinine 1.3 mg/dL (0.7-1.3) Estimated GFR (Cockcroft-Gault) 76.5 BUN/Creatinine Ratio 10 (6-20) Glucose Level 121 mg/dL (70-99) Lactic Acid Level 1.5 mmol/L (0.4-2.0) Calcium Level 8.7 mg/dL (8.5-10.1) Total Bilirubin 1.0 mg/dL (0.2-1.0) Aspartate Amino Transf (AST/SGOT) 22 U/L (15-37) Alanine Aminotransferase (ALT/SGPT) 18 U/L (16-63) Alkaline Phosphatase 52 U/L (46-116) Total Protein 8.8 g/dL (6.4-8.2) Albumin 3.5 g/dL (3.4-5.0) Albumin/Globulin Ratio 0.7 (1.0-1.7) Influenza Type A Antigen Negative (NEGATIVE) Influenza Type B Antigen Negative (NEGATIVE) Urine Collection Type Unknown Urine Color Yellow Urine Clarity Clear Urine pH 8.5 Urine Specific [place] 1.020 Urine Protein Negative mg/dL (NEG-TRACE) Urine Glucose (UA) Negative mg/dL (NEG) Urine Ketones (Stick) Trace mg/dL (NEG) Urine Blood Negative (NEG) Urine Nitrite Negative (NEG) Urine Bilirubin Negative (NEG) Urine Urobilinogen Dipstick 1.0 mg/dL (0.2 mg/dL) Urine Leukocyte Esterase Small (NEG) Urine RBC Occ /HPF (0-2) Urine WBC 5-10 /HPF (0-4) Urine Squamous Epithelial Cells Occ /LPF Urine Bacteria 0 /HPF (0-FEW) Urine Mucus Slight /LPF Urine Opiates Screen Pos (NEG) Urine Methadone Screen Neg (NEG) Urine Barbiturates Neg (NEG) Urine Phencyclidine Screen Neg (NEG) Urine Amphetamine/Methamphetamine Neg (NEG) Urine Benzodiazepines Screen Neg (NEG) Urine Cocaine Screen Neg (NEG) Urine Cannabinoids Screen Neg (NEG) Urine Ethyl Alcohol Neg (NEG) Assessment/Plan Assessment/Plan cellulitis, possible abscess--no abscess on CT, however soft area noted on exam will review with Dr Caban for possible I&D in OR NARCISA CABAN MD 09/22/19 1789: CONSULT Assessment/Plan Assessment/Plan pt seen, interviewed and examined to OR for rigid proctoscopy (rectal wall thickening noted on CT), incision and drainage left gluteal fullness risks inluding but not limited to bleeding, infection, recurrence were explained he will proceed Thanks for consult KAROLINA HEAD APRN Sep 22, 2019 09:12 NARCISA CABAN MD Sep 22, 2019 09:35
[2019-09-22] MEDS ORDERED: IV NORMAL SALINE 500ML BAG 500 ML IV PRN (09:15)
[2019-09-22] MEDS ORDERED: NOREPINEPHRINE VIAL 8 MG in IV DEXTROSE 5% 250 ML IV PRN (09:15)
[2019-09-22] MEDS ORDERED: SEVOFLURANE 31 TO 60 MINUTES. IH ONE (09:17)
[2019-09-22] MEDS ORDERED: PROPOFOL 20 ML IV ONE (09:19)
[2019-09-22] MEDS ORDERED: ONDANSETRON PF 4 MG/2 ML VIAL. ONE (09:19)
[2019-09-22] MEDS ORDERED: LIDOCAINE 2% PF 5 ML VIAL. ONE (09:19)
[2019-09-22] MEDS ORDERED: fentaNYL PF VIAL 100 MCG/2 ML VIAL ONE (09:19)
[2019-09-22] MEDS ORDERED: KETOROLAC 30 MG/ML VIAL. ONE (09:19)
[2019-09-22] MEDS ORDERED: DEXAMETHASONE SOD PHOS 4 MG/ML VIAL ONE (09:19)
[2019-09-22] MEDS ORDERED: MIDAZOLAM HCL/PF 2 MG/2 ML VIAL. ONE (09:19)
[2019-09-22] MEDS ORDERED: ROCURONIUM 50 MG/5 ML VIAL. ONE (09:24)
[2019-09-22] MEDS ORDERED: SUCCINYLCHOLINE 200 MG/10 ML VIAL. ONE (09:24)
[2019-09-22] MEDS ORDERED: BUPIVACAINE-EPI 0.5%-1:200000 MPF 30 ML VIAL. INJ ONE (09:45)
[2019-09-22] MEDS ORDERED: PHENYLEPHRINE in 0.9% NACL PF 1 MG/10 ML SYRINGE. IV ONE (10:00)
[2019-09-22 10:32] LABS: HEMATOCRIT 36.1 % (39.0-53.0); HEMOGLOBIN 11.8 g/dL (13.0-17.5); RED BLOOD COUNT 3.96 x10^6/uL (4.30-5.70); RED CELL DISTRIBUTION WIDTH 13.4 % (11.5-14.5)
[2019-09-22 10:45] LABS: CALCIUM 8.4 mg/dL (8.5-10.1); CREATININE 1.4 mg/dL (0.7-1.3); GFR 70.2; POTASSIUM 3.9 mmol/L (3.5-5.1)
[2019-09-22] MEDS ORDERED: DOCUSATE SODIUM 100 MG CAPSULE. PO PRN (10:45)
[2019-09-22] MEDS ORDERED: LORazepam 0.5 MG TABLET PO PRN (10:45)
[2019-09-22] MEDS ORDERED: cloNIDine HCL 0.1 MG TABLET PO PRN (10:45)
[2019-09-22] MEDS ORDERED: guaiFENesin ORAL 200 MG/10 ML LIQUID. PO PRN (10:45)
[2019-09-22] MEDS ORDERED: ONDANSETRON PF 4 MG/2 ML VIAL. IV PRN (10:45)
[2019-09-22] MEDS ORDERED: ACETAMINOPHEN 325 MG TABLET. PO PRN (10:45)
[2019-09-22] MEDS ORDERED: 0.9 % SODIUM CHLORIDE 10 ML DISP.SYRIN. IV PRN (10:45)
[2019-09-22] MEDS ORDERED: ALBUTEROL SULFATE 2.5 MG/3 ML NEBU. NEB PRN (10:45)
[2019-09-22] MEDS ORDERED: MAG HYDROX/ALUMINUM HYD/SIMETH 30 ML ORAL.SUSP PO PRN (10:45)
[2019-09-22] MEDS ORDERED: ZOLPIDEM 5 MG TABLET. PO PRN (10:45)
[2019-09-22 10:50] LABS: PROTHROMBIN TIME PATIENT 17.8 SEC (11.7-14.0)
[2019-09-22] MEDS: ENOXAPARIN 40 MG/0.4 ML SYRINGE. SQ SCH (11:00)
[2019-09-22] MEDS ORDERED: SURGICEL HEMOSTAT 2X3 EACH. ONE (11:23)
[2019-09-22] MEDS ORDERED: SURGICEL HEMOSTAT 4X8 EACH. ONE (11:24)
--- NOTE | 2019-09-22 12:22 | PDOC ---
BRIEF OPERATIVE NOTE Date: Sep 22, 2019 Pre-Op Diagnosis perirectal abscess, thickened rectal mucosa Post-Op Diagnosis same Procedure Performed rigid proctoscopy incision and drainage of perirectal abscess Surgeon Eric Anesthesia Type: General Blood Loss 10cc IV Fluid 300cc Specimens Obtained cultures Findings edematous rectal mucosa without obvious mass, perirectal abscess Complications none Operative Note Wk # [id number] NARCISA CABAN MD Sep 22, 2019 12:22
--- NOTE | 2019-09-22 12:32 | CONS ---
DATE OF CONSULTATION: 09/22/2019 REFERRING PHYSICIAN: Esha Garza MD REASON FOR CONSULTATION: Left perirectal abscess. HISTORY OF PRESENT ILLNESS: A 34-year-old male presented to the ER via EMS with complaints of left buttock swelling and drainage. He had fevers and chills. The patient also noticed some pus. 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 He is originally from [place]. He was en route this way when the above symptoms started. He denies any sore throat, oral sores, headache, nausea, vomiting, chest pain, shortness of breath, diarrhea, symptoms, or abdominal pain. Denies any trauma. Denies any history of recent STDs. Denies any antibiotics. The patient has a history of GC during his teenage years. Denies any recent hospitalization. His white count was 17,000. He received a dose of Levaquin and clindamycin, which is currently on. General Surgery has evaluated the patient and plans are to take him to OR for rigid proctoscopy and I and D. He underwent CT, which showed rectal wall thickening, could be acute inflammation or infection versus chronic inflammatory-type stranding in the left gluteal subcutaneous fat along the midline, suspicious for cellulitis. No evidence of drainable abscess. Subcentimeter hepatic lesion, nonspecific. The patient had pyuria. Blood sugars were elevated at 121. PAST MEDICAL HISTORY: Denies diabetes. CURRENT MEDICATIONS: IV Levaquin and clindamycin. Other medications reviewed in medication list. ALLERGIES: PENICILLIN, HIVES. Does not recall taking Augmentin, amoxicillin, or cephalexin. SOCIAL HISTORY: Denies smoking, ETOH, or illicit drug use. Not sexually active for quite some time. History of MSM. Denies any history of hepatitis or other STDs except for above. PHYSICAL EXAMINATION: VITAL SIGNS: Temperature 99, T-max 100.9, pulse 62, respiratory rate 20, blood pressure 87/46, and oxygen saturation 100% on room air. GENERAL: Alert and oriented x 3, pleasant male in mild distress from pain, cooperative. HEENT: Normocephalic, atraumatic, anicteric. No thrush. Oral mucosa moist. No oropharyngeal exudate. NECK: Supple, no JVD, no lymphadenopathy. LUNGS: Clear bilaterally. No wheezing. HEART: S1, S2. No gallops or murmurs. ABDOMEN: Soft, nontender, and nondistended. No rebound. No guarding. GENITOURINARY: Left perianal area swelling, induration, and tenderness present. There is a small area of superficial ulceration. I did not do a rectal exam on him today. EXTREMITIES: No edema. No cyanosis. DERMATOLOGIC: Warm and dry. No generalized rash except for above. PSYCHIATRIC: Cooperative, appropriate mood and affect. NEUROLOGIC: Grossly nonfocal. Alert and oriented x 3. LABORATORY DATA: WBC 17.5, hemoglobin 12.7, hematocrit 37.5, and platelets 214. Sodium 132, potassium 3.5, chloride 100, bicarbonate 25, BUN 13, creatinine 1.3, lactate 1.5, and calcium 8.7. LFTs within normal limits. Total protein 8.8. Albumin 3.5. UA shows small leukocyte esterase, 5-10 wbc's. UDS positive for opiates. Influenza screen negative. IMAGING: CT abdomen and pelvis as above in HPI. IMPRESSION: 1. Left perirectal abscess with extension to the left buttock area. 2. Leukocytosis. 3. Pyuria. 4. High risk behavior. 5. Fever. 6. History of human immunodeficiency virus done 2 years ago, negative. 7. Anemia. 8. History of ALLERGIES TO PENICILLIN WITH HIVES. Does not recall taking amoxicillin, Augmentin, Keflex, or other cephalosporins. RECOMMENDATIONS: 1. Discontinue IV clindamycin and Levaquin. 2. Start the patient on meropenem. Monitor closely. 3. Start Zyvox. 4. Awaiting I and D in OR today. Please send intraoperative cultures. 5. We will check HIV, hepatitis profile, RPR, GC and chlamydia, urine PCR. 6. Start empiric doxycycline. 7. Follow up cultures and lab. 8. Continue supportive care. 9. Local wound care per General Surgery. 10. Discussed with nursing staff. Thank you for consulting Infectious Disease to participate in this patient's care. If you have any questions, do not hesitate to contact us. GEOVANI JONES MD DR: CARISSA/sakina JOB#: [id number] / [id number]
--- NOTE | 2019-09-22 12:33 | OP ---
DATE OF SURGERY: 09/22/2019 PREOPERATIVE DIAGNOSIS: Perirectal abscess with thickened rectal mucosa by CT. POSTOPERATIVE DIAGNOSIS: Perirectal abscess with thickened rectal mucosa by CT. PROCEDURE: Rigid proctoscopy, incision and drainage of perirectal abscess. SURGEON: yS Caban MD ANESTHESIA: General LMA. ESTIMATED BLOOD LOSS: 10 mL. INTRAVENOUS FLUIDS: 300 mL. INDICATIONS: The patient is a 34-year-old with pain and induration of the left buttocks with some pointing at 5:00. CT scan done on admission also reveals thickening of the rectal mucosa. OPERATIVE FINDINGS: Inspection of the rectal mucosa was carried out, however, poor prep, but limited exam. No obvious mass was found, but edematous mucosal changes were present. DESCRIPTION OF PROCEDURE: The patient brought to the operating suite, given a general LMA and placed in the dorsal lithotomy position. The rigid proctoscope was inserted and advanced approximately 10 cm from the anal verge, where a moderate amount of soft brown stool was encountered. This was evacuated as much as possible to get a look at the rectal mucosa. This showed edematous changes without ulceration or mass seen given the limitations from the prep. The perineum was then prepped and draped in usual sterile fashion. The area of fluctuance at 5:00 was opened and purulent material drained. Cavity was evacuated and cultured. Digital exploration revealed some tracking toward the buttocks. A counterincision was made and a Shannan drain threaded through it and secured with a 2-0 silk stitch. Wound was irrigated and checked for hemostasis. When present, it was dressed with Surgicel. Sterile dressings applied. The patient was taken out of lithotomy position, awakened from his anesthetic and taken to the recovery room in satisfactory condition. SY CABAN MD DR: ARABELLA/sakina JOB#: [id number] / [id number]
[2019-09-22] MEDS: MEROPENEM 500 MG in IV NORMAL SALINE 50ML 50 ML IV SCH ×3 (12:41→23:47)
--- NOTE | 2019-09-22 12:54 | NUR ---
SW following. 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 Pt having surgery today. SW will continue to follow.
[2019-09-22] MEDS: HYDROmorphone 2 MG/ML VIAL IV PRN ×2 (16:03→20:30)
[2019-09-22] MEDS: LINEZOLID 600 MG TABLET PO SCH ×2 (16:03→20:31)
[2019-09-22] MEDS: DOXYCYCLINE HYCLATE 100 MG TABLET PO SCH (20:32)
[2019-09-22] MEDS ORDERED: diphenhydrAMINE 50 MG/ML VIAL IVP PRN (23:15)
[2019-09-22] MEDS ORDERED: HYDROcodone/APAP 5/325MG 1 TAB TABLET PO PRN (23:15)
[2019-09-23] MEDS: IV NORMAL SALINE 1000ML BAG 1,000 ML IV SCH ×2 (02:53→13:06)
[2019-09-23 03:00] VITALS: BP 93/43
[2019-09-23] MEDS: MEROPENEM 500 MG in IV NORMAL SALINE 50ML 50 ML IV SCH ×2 (05:47→12:43)
[2019-09-23 07:00] VITALS: BP 117/62
[2019-09-23 08:00] LABS: BASO % 0 % (0-3); EOS % 0 % (0-3); HEMATOCRIT 33.1 % (39.0-53.0); HEMOGLOBIN 10.9 g/dL (13.0-17.5); LYMPH # 1.4 x10^3/uL (1.0-4.8); LYMPH % 7 % (24-48); MEAN CORPUSCULAR HEMOGLOBIN 30 pg (25-35); MEAN CORPUSCULAR HGB CONC 33 g/dL (31-37); MEAN CORPUSCULAR VOLUME 90 fL (79-100); MONO % 6 % (0-9); NEUT # 16.6 x10^3/uL (1.8-7.7); NEUT % 87 % (31-73); PLATELET COUNT 191 x10^3/uL (140-400); RED BLOOD COUNT 3.66 x10^6/uL (4.30-5.70); RED CELL DISTRIBUTION WIDTH 13.3 % (11.5-14.5); WHITE BLOOD COUNT 19.1 x10^3/uL (4.0-11.0)
[2019-09-23] MEDS: ENOXAPARIN 40 MG/0.4 ML SYRINGE. SQ SCH (08:53)
[2019-09-23] MEDS: NICOTINE 7MG PATCH. TD SCH (08:54)
[2019-09-23] MEDS: LINEZOLID 600 MG TABLET PO SCH (08:54)
[2019-09-23] MEDS: DOXYCYCLINE HYCLATE 100 MG TABLET PO SCH (08:54)
--- NOTE | 2019-09-23 09:07 | PDOC ---
Infectious Disease Note Subjective: Subjective pt says pain is under control demanding for dc today as he drives back to [place] tomorrow at 6 am no f/c/n/v/d/abdo pain/gu symptoms/sob or cough Vital Signs: Vital Signs Vital Signs Date Time Temp Pulse Resp B/P (MAP) Pulse Ox O2 Delivery O2 Flow Rate FiO2 09/23/19 03:00 98.6 68 14 93/43 (60) 98 Room Air 98.6 09/22/19 21:00 2.0 Physical Exam: PHYSICAL EXAM GENERAL: Alert and oriented x 3, pleasant male in mild distress from pain, cooperative. HEENT: Normocephalic, atraumatic, anicteric. No thrush. Oral mucosa moist. No oropharyngeal exudate. NECK: Supple, no JVD, no lymphadenopathy. LUNGS: Clear bilaterally. No wheezing. HEART: S1, S2. No gallops or murmurs. ABDOMEN: Soft, nontender, and nondistended. No rebound. No guarding. GENITOURINARY: Left perianal area swelling, induration, and tenderness improved, drain in place EXTREMITIES: No edema. No cyanosis. DERMATOLOGIC: Warm and dry. No generalized rash except for above. PSYCHIATRIC: Cooperative, appropriate mood and affect. NEUROLOGIC: Grossly nonfocal. Alert and oriented x 3. Medications: Inpatient Meds: Current Medications Medications (Trade) Dose Ordered Sig/Louis Start Time Stop Time Status Last Admin Dose Admin Acetaminophen (Tylenol) 650 mg PRN Q4HRS PRN 09/22/19 10:45 Acetaminophen/ Hydrocodone Bitart (Lortab 5/325) 1 tab PRN Q4HRS PRN 09/22/19 23:15 09/22/19 23:39 1 TAB Al Hydroxide/Mg Hydroxide (Mylanta Plus Xs) 30 ml PRN DAILY PRN 09/22/19 10:45 Albuterol Sulfate (Ventolin Neb Soln) 2.5 mg PRN Q4HRS PRN 09/22/19 10:45 Bupivacaine HCl/ Epinephrine Bitart (Sensorcain-Epi 0.5%-1:[id number] Mpf) 30 ml 1X ONCE 09/22/19 09:45 09/22/19 09:46 DC Cellulose (Surgicel Hemostat 2x3) 1 each STK-MED ONCE 09/22/19 11:23 09/22/19 11:23 DC 09/22/19 11:20 1 EACH Cellulose (Surgicel Hemostat 4x8) 1 each STK-MED ONCE 09/22/19 11:24 09/22/19 11:25 DC 09/22/19 11:22 1 EACH Clindamycin Phosphate 50 ml @ 100 mls/hr Q6HRS 09/22/19 00:00 09/22/19 10:07 DC 09/22/19 05:20 100 MLS/HR Clonidine HCl (Catapres) 0.1 mg PRN Q6HRS PRN 09/22/19 10:45 Dexamethasone Sodium Phosphate (Decadron) 4 mg STK-MED ONCE 09/22/19 09:19 09/22/19 09:19 DC Diphenhydramine HCl (Benadryl) 25 mg PRN Q6HRS PRN 09/22/19 23:15 09/22/19 23:42 25 MG Docusate Sodium (Colace) 100 mg PRN BID PRN 09/22/19 10:45 09/22/19 20:31 100 MG Doxycycline Hyclate (Vibra-Tab) 100 mg BID 09/22/19 21:00 09/23/19 08:54 100 MG Enoxaparin Sodium (Lovenox 40mg Syringe) 40 mg DAILY 09/22/19 11:00 09/23/19 08:53 40 MG Fentanyl Citrate (Fentanyl 2ml Vial) 100 mcg STK-MED ONCE 09/22/19 09:19 09/22/19 09:19 DC Guaifenesin (Robitussin) 200 mg PRN Q4HRS PRN 09/22/19 10:45 Hydromorphone HCl (Dilaudid) 1 mg PRN Q2HRS PRN 09/22/19 10:45 09/22/19 20:30 1 MG Influenza Virus Vaccine Quadrival (Afluria Quad 2019-20 (3yr Up) Syringe) 0.5 ml ONCE ONCE 09/22/19 09:00 09/22/19 09:01 DC Iohexol (Omnipaque 300 Mg/ml) 75 ml 1X ONCE 09/21/19 18:00 09/21/19 18:01 DC 09/21/19 18:13 75 ML Ketorolac Tromethamine (Toradol 30mg Vial) 30 mg STK-MED ONCE 09/22/19 09:19 09/22/19 09:19 DC Levofloxacin/ Dextrose 150 ml @ 100 mls/hr Q24H 09/22/19 17:30 09/22/19 10:07 DC Lidocaine HCl (Lidocaine Pf 2% Vial) 5 ml STK-MED ONCE 09/22/19 09:19 09/22/19 09:19 DC Linezolid (Zyvox) 600 mg BID 09/22/19 11:00 09/23/19 08:54 600 MG Lorazepam (Ativan) 0.5 mg PRN Q4HRS PRN 09/22/19 10:45 Meropenem 500 mg/ Sodium Chloride 50 ml @ 100 mls/hr Q6HRS 09/22/19 11:00 09/23/19 05:47 100 MLS/HR Midazolam HCl (Versed) 2 mg STK-MED ONCE 09/22/19 09:19 09/22/19 09:19 DC Morphine Sulfate (Morphine Sulfate) 1 mg PRN Q10MIN PRN 09/22/19 09:00 09/23/19 08:59 DC Nicotine (Nicoderm Cq 7mg) 1 patch DAILY 09/21/19 21:00 09/23/19 08:54 1 PATCH Norepinephrine Bitartrate 8 mg/ Dextrose 258 ml @ 0 mls/hr CONT PRN 09/22/19 09:15 UNV Ondansetron HCl (Zofran) 4 mg PRN Q4HRS PRN 09/22/19 10:45 Phenylephrine HCl (PHENYLEPHRINE in 0.9% NACL PF) 1 mg STK-MED ONCE 09/22/19 10:00 09/22/19 10:00 DC Prochlorperazine Edisylate (Compazine) 5 mg PACU PRN PRN 09/22/19 09:00 09/22/19 19:17 DC Propofol 20 ml @ As Directed STK-MED ONCE 09/22/19 09:19 09/22/19 09:19 DC Ringer's Solution 1,000 ml @ 30 mls/hr Q24H 09/22/19 08:57 09/22/19 19:17 DC Rocuronium [place] (Zemuron) 50 mg STK-MED ONCE 09/22/19 09:24 09/22/19 09:24 DC Sevoflurane (Ultane) 30 ml STK-MED ONCE 09/22/19 09:17 09/22/19 09:17 DC Sodium Chloride 1,000 ml @ 100 mls/hr Q10H 09/22/19 10:42 09/23/19 02:53 100 MLS/HR Sodium Chloride (Normal Saline Flush) 3 ml QSHIFT PRN 09/22/19 10:45 Succinylcholine Chloride (Anectine) 200 mg STK-MED ONCE 09/22/19 09:24 09/22/19 09:24 DC Zolpidem Tartrate (Ambien) 5 mg PRN QHS PRN 09/22/19 10:45 Labs: Lab Laboratory Tests Test 09/22/19 10:00 09/23/19 07:00 White Blood Count 19.0 x10^3/uL (4.0-11.0) 19.1 x10^3/uL (4.0-11.0) Red Blood Count 3.96 x10^6/uL (4.30-5.70) 3.66 x10^6/uL (4.30-5.70) Hemoglobin 11.8 g/dL (13.0-17.5) 10.9 g/dL (13.0-17.5) Hematocrit 36.1 % (39.0-53.0) 33.1 % (39.0-53.0) Mean Corpuscular Volume 91 fL (79-100) 90 fL (79-100) Mean Corpuscular Hemoglobin 30 pg (25-35) 30 pg (25-35) Mean Corpuscular Hemoglobin Concent 33 g/dL (31-37) 33 g/dL (31-37) Red Cell Distribution Width 13.4 % (11.5-14.5) 13.3 % (11.5-14.5) Platelet Count 187 x10^3/uL (140-400) 191 x10^3/uL (140-400) Prothrombin Time 17.8 SEC (11.7-14.0) Prothromb Time International Ratio 1.5 (0.8-1.1) Activated Partial Thromboplast Time 32 SEC (24-38) Fibrinogen 567 mg/dL (200-440) Sodium Level 136 mmol/L (136-145) Potassium Level 3.9 mmol/L (3.5-5.1) Chloride Level 103 mmol/L (98-107) Carbon Dioxide Level 25 mmol/L (21-32) Anion Gap 8 (6-14) Blood Urea Nitrogen 16 mg/dL (8-26) Creatinine 1.4 mg/dL (0.7-1.3) Estimated GFR (Cockcroft-Gault) 70.2 Glucose Level 90 mg/dL (70-99) Lactic Acid Level 1.7 mmol/L (0.4-2.0) Calcium Level 8.4 mg/dL (8.5-10.1) Procalcitonin 6.25 ng/mL (0.00-0.10) Neutrophils (%) (Auto) 87 % (31-73) Lymphocytes (%) (Auto) 7 % (24-48) Monocytes (%) (Auto) 6 % (0-9) Eosinophils (%) (Auto) 0 % (0-3) Basophils (%) (Auto) 0 % (0-3) Neutrophils # (Auto) 16.6 x10^3/uL (1.8-7.7) Lymphocytes # (Auto) 1.4 x10^3/uL (1.0-4.8) Monocytes # (Auto) 1.0 x10^3/uL (0.0-1.1) Eosinophils # (Auto) 0.0 x10^3/uL (0.0-0.7) Basophils # (Auto) 0.0 x10^3/uL (0.0-0.2) Objective: Assessment: 1. Left perirectal abscess with extension to the left buttock area.s/p I and D Sep 2 cult pending 2. Leukocytosis. ? now postop 3. Pyuria. UC neg, asymptomatic 4. High risk behavior.HIv and hepatitis panel pending 5. Fever. 6. History of human immunodeficiency virus done 2 years ago, negative. 7. Anemia. 8. History of ALLERGIES TO PENICILLIN WITH HIVES. Does not recall taking amoxicillin, Augmentin, Keflex, or other cephalosporins. Plan: Plan of Care meropenem/Zyvox/doxy f/u HIV, hepatitis profile, RPR, GC and chlamydia, urine PCR. Follow up cultures and lab. Local wound care per General Surgery. If pt is dc today ,can transition to augmentin and doxycycline for 10 days off load f/u with pcp next week call for HIV and other std results d/w GEOVANI Jane MD Sep 23, 2019 09:07
--- NOTE | 2019-09-23 09:47 | PDOC ---
KAROLINA HEAD [employer] 09/23/19 0947: SURGICAL PROGRESS NOTE Subjective feels better wants to get home today Vital Signs Vital Signs Date Time Temp Pulse Resp B/P (MAP) Pulse Ox O2 Delivery O2 Flow Rate FiO2 09/23/19 07:00 98.2 77 18 117/62 (80) 98 Room Air 98.2 09/22/19 21:00 2.0 I&O Intake and Output 09/23/19 07:00 Intake Total 3340 ml Output Total 2110 ml Balance 1230 ml Intake Oral 2340 ml IV Total 1000 ml Output Urine Total 2100 ml Estimated Blood Loss 10 ml # Voids 1 General: Alert, Oriented X3, Cooperative Skin: Other (perirectal area with drain in place) Labs Laboratory Tests Test 09/21/19 16:35 09/21/19 16:55 09/21/19 19:05 09/22/19 10:00 White Blood Count 17.5 x10^3/uL (4.0-11.0) 19.0 x10^3/uL (4.0-11.0) Red Blood Count 4.24 x10^6/uL (4.30-5.70) 3.96 x10^6/uL (4.30-5.70) Hemoglobin 12.7 g/dL (13.0-17.5) 11.8 g/dL (13.0-17.5) Hematocrit 37.5 % (39.0-53.0) 36.1 % (39.0-53.0) Mean Corpuscular Volume 88 fL (79-100) 91 fL (79-100) Mean Corpuscular Hemoglobin 30 pg (25-35) 30 pg (25-35) Mean Corpuscular Hemoglobin Concent 34 g/dL (31-37) 33 g/dL (31-37) Red Cell Distribution Width 13.1 % (11.5-14.5) 13.4 % (11.5-14.5) Platelet Count 214 x10^3/uL (140-400) 187 x10^3/uL (140-400) Neutrophils (%) (Auto) 89 % (31-73) Lymphocytes (%) (Auto) 5 % (24-48) Monocytes (%) (Auto) 5 % (0-9) Eosinophils (%) (Auto) 0 % (0-3) Basophils (%) (Auto) 0 % (0-3) Neutrophils # (Auto) 15.6 x10^3/uL (1.8-7.7) Lymphocytes # (Auto) 0.9 x10^3/uL (1.0-4.8) Monocytes # (Auto) 0.9 x10^3/uL (0.0-1.1) Eosinophils # (Auto) 0.0 x10^3/uL (0.0-0.7) Basophils # (Auto) 0.0 x10^3/uL (0.0-0.2) Segmented Neutrophils % 74 % (35-66) Band Neutrophils % 17 % (0-9) Lymphocytes % 8 % (24-48) Monocytes % 1 % (0-10) Toxic Granulation Slight Platelet Estimate Adequate (ADEQUATE) Sodium Level 132 mmol/L (136-145) 136 mmol/L (136-145) Potassium Level 3.5 mmol/L (3.5-5.1) 3.9 mmol/L (3.5-5.1) Chloride Level 100 mmol/L (98-107) 103 mmol/L (98-107) Carbon Dioxide Level 25 mmol/L (21-32) 25 mmol/L (21-32) Anion Gap 7 (6-14) 8 (6-14) Blood Urea Nitrogen 13 mg/dL (8-26) 16 mg/dL (8-26) Creatinine 1.3 mg/dL (0.7-1.3) 1.4 mg/dL (0.7-1.3) Estimated GFR (Cockcroft-Gault) 76.5 70.2 BUN/Creatinine Ratio 10 (6-20) Glucose Level 121 mg/dL (70-99) 90 mg/dL (70-99) Lactic Acid Level 1.5 mmol/L (0.4-2.0) 1.7 mmol/L (0.4-2.0) Calcium Level 8.7 mg/dL (8.5-10.1) 8.4 mg/dL (8.5-10.1) Total Bilirubin 1.0 mg/dL (0.2-1.0) Aspartate Amino Transf (AST/SGOT) 22 U/L (15-37) Alanine Aminotransferase (ALT/SGPT) 18 U/L (16-63) Alkaline Phosphatase 52 U/L (46-116) Total Protein 8.8 g/dL (6.4-8.2) Albumin 3.5 g/dL (3.4-5.0) Albumin/Globulin Ratio 0.7 (1.0-1.7) Influenza Type A Antigen Negative (NEGATIVE) Influenza Type B Antigen Negative (NEGATIVE) Urine Collection Type Unknown Urine Color Yellow Urine Clarity Clear Urine pH 8.5 Urine Specific [place] 1.020 Urine Protein Negative mg/dL (NEG-TRACE) Urine Glucose (UA) Negative mg/dL (NEG) Urine Ketones (Stick) Trace mg/dL (NEG) Urine Blood Negative (NEG) Urine Nitrite Negative (NEG) Urine Bilirubin Negative (NEG) Urine Urobilinogen Dipstick 1.0 mg/dL (0.2 mg/dL) Urine Leukocyte Esterase Small (NEG) Urine RBC Occ /HPF (0-2) Urine WBC 5-10 /HPF (0-4) Urine Squamous Epithelial Cells Occ /LPF Urine Bacteria 0 /HPF (0-FEW) Urine Mucus Slight /LPF Urine Opiates Screen Pos (NEG) Urine Methadone Screen Neg (NEG) Urine Barbiturates Neg (NEG) Urine Phencyclidine Screen Neg (NEG) Urine Amphetamine/Methamphetamine Neg (NEG) Urine Benzodiazepines Screen Neg (NEG) Urine Cocaine Screen Neg (NEG) Urine Cannabinoids Screen Neg (NEG) Urine Ethyl Alcohol Neg (NEG) Prothrombin Time 17.8 SEC (11.7-14.0) Prothromb Time International Ratio 1.5 (0.8-1.1) Activated Partial Thromboplast Time 32 SEC (24-38) Fibrinogen 567 mg/dL (200-440) Procalcitonin 6.25 ng/mL (0.00-0.10) Test 09/23/19 07:00 White Blood Count 19.1 x10^3/uL (4.0-11.0) Red Blood Count 3.66 x10^6/uL (4.30-5.70) Hemoglobin 10.9 g/dL (13.0-17.5) Hematocrit 33.1 % (39.0-53.0) Mean Corpuscular Volume 90 fL (79-100) Mean Corpuscular Hemoglobin 30 pg (25-35) Mean Corpuscular Hemoglobin Concent 33 g/dL (31-37) Red Cell Distribution Width 13.3 % (11.5-14.5) Platelet Count 191 x10^3/uL (140-400) Neutrophils (%) (Auto) 87 % (31-73) Lymphocytes (%) (Auto) 7 % (24-48) Monocytes (%) (Auto) 6 % (0-9) Eosinophils (%) (Auto) 0 % (0-3) Basophils (%) (Auto) 0 % (0-3) Neutrophils # (Auto) 16.6 x10^3/uL (1.8-7.7) Lymphocytes # (Auto) 1.4 x10^3/uL (1.0-4.8) Monocytes # (Auto) 1.0 x10^3/uL (0.0-1.1) Eosinophils # (Auto) 0.0 x10^3/uL (0.0-0.7) Basophils # (Auto) 0.0 x10^3/uL (0.0-0.2) Laboratory Tests Test 09/22/19 10:00 09/23/19 07:00 White Blood Count 19.0 x10^3/uL (4.0-11.0) 19.1 x10^3/uL (4.0-11.0) Red Blood Count 3.96 x10^6/uL (4.30-5.70) 3.66 x10^6/uL (4.30-5.70) Hemoglobin 11.8 g/dL (13.0-17.5) 10.9 g/dL (13.0-17.5) Hematocrit 36.1 % (39.0-53.0) 33.1 % (39.0-53.0) Mean Corpuscular Volume 91 fL (79-100) 90 fL (79-100) Mean Corpuscular Hemoglobin 30 pg (25-35) 30 pg (25-35) Mean Corpuscular Hemoglobin Concent 33 g/dL (31-37) 33 g/dL (31-37) Red Cell Distribution Width 13.4 % (11.5-14.5) 13.3 % (11.5-14.5) Platelet Count 187 x10^3/uL (140-400) 191 x10^3/uL (140-400) Prothrombin Time 17.8 SEC (11.7-14.0) Prothromb Time International Ratio 1.5 (0.8-1.1) Activated Partial Thromboplast Time 32 SEC (24-38) Fibrinogen 567 mg/dL (200-440) Sodium Level 136 mmol/L (136-145) Potassium Level 3.9 mmol/L (3.5-5.1) Chloride Level 103 mmol/L (98-107) Carbon Dioxide Level 25 mmol/L (21-32) Anion Gap 8 (6-14) Blood Urea Nitrogen 16 mg/dL (8-26) Creatinine 1.4 mg/dL (0.7-1.3) Estimated GFR (Cockcroft-Gault) 70.2 Glucose Level 90 mg/dL (70-99) Lactic Acid Level 1.7 mmol/L (0.4-2.0) Calcium Level 8.4 mg/dL (8.5-10.1) Procalcitonin 6.25 ng/mL (0.00-0.10) Neutrophils (%) (Auto) 87 % (31-73) Lymphocytes (%) (Auto) 7 % (24-48) Monocytes (%) (Auto) 6 % (0-9) Eosinophils (%) (Auto) 0 % (0-3) Basophils (%) (Auto) 0 % (0-3) Neutrophils # (Auto) 16.6 x10^3/uL (1.8-7.7) Lymphocytes # (Auto) 1.4 x10^3/uL (1.0-4.8) Monocytes # (Auto) 1.0 x10^3/uL (0.0-1.1) Eosinophils # (Auto) 0.0 x10^3/uL (0.0-0.7) Basophils # (Auto) 0.0 x10^3/uL (0.0-0.2) Problem List Problems Medical Problems: (1) Cellulitis and abscess of buttock Status: Acute (2) Fever Status: Acute (3) Sepsis Status: Acute Assessment/Plan s/p I&D--ok to dc home when ok with primary, home with merced drain in place an d FU 09/[address] Caban defer abx to IPC NARCISA CABAN MD 09/23/19 1353: SURGICAL PROGRESS NOTE Assessment/Plan pt seen as above home today see in office Thursday KAROLINA HEAD APRN Sep 23, 2019 09:47 NARCISA CABAN MD Sep 23, 2019 13:53
--- NOTE | 2019-09-23 10:47 | NUR ---
SW following. Discussed with RN, pt wanting to discharge today as has to work at 0600 tomorrow. Surgery is okay with discharge if Dr. Sotelo is okay from ID standpoint. From notes, looks as though as could switch to oral abx. No SW needs.
[2019-09-23 11:00] VITALS: BP 138/84
[2019-09-23] MEDS ORDERED: HYDR-2761 PO (11:29)
--- NOTE | 2019-09-23 11:31 | PDOC3 ---
Discharge Summary Visit Information Date of Admission: Sep 21, 2019 Date of Discharge: Sep 23, 2019 Admitting Diagnosis Comment: left buttock abscess s.p I and D NON DM Final Diagnosis Problems Medical Problems: (1) Cellulitis and abscess of buttock Status: Acute (2) Fever Status: Acute (3) Sepsis Status: Acute Brief Hospital Course Allergies Allergies Coded Allergies Type Severity Reaction Last Updated Verified Penicillins Allergy Intermediate 09/21/19 Yes Vital Signs Vital Signs Date Time Temp Pulse Resp B/P (MAP) Pulse Ox O2 Delivery O2 Flow Rate FiO2 09/23/19 07:00 98.2 77 18 117/62 (80) 98 Room Air 98.2 09/22/19 21:00 2.0 Lab Results Laboratory Tests Test 09/21/19 16:35 09/21/19 16:55 09/21/19 19:05 09/22/19 10:00 White Blood Count 17.5 x10^3/uL (4.0-11.0) 19.0 x10^3/uL (4.0-11.0) Red Blood Count 4.24 x10^6/uL (4.30-5.70) 3.96 x10^6/uL (4.30-5.70) Hemoglobin 12.7 g/dL (13.0-17.5) 11.8 g/dL (13.0-17.5) Hematocrit 37.5 % (39.0-53.0) 36.1 % (39.0-53.0) Mean Corpuscular Volume 88 fL (79-100) 91 fL (79-100) Mean Corpuscular Hemoglobin 30 pg (25-35) 30 pg (25-35) Mean Corpuscular Hemoglobin Concent 34 g/dL (31-37) 33 g/dL (31-37) Red Cell Distribution Width 13.1 % (11.5-14.5) 13.4 % (11.5-14.5) Platelet Count 214 x10^3/uL (140-400) 187 x10^3/uL (140-400) Neutrophils (%) (Auto) 89 % (31-73) Lymphocytes (%) (Auto) 5 % (24-48) Monocytes (%) (Auto) 5 % (0-9) Eosinophils (%) (Auto) 0 % (0-3) Basophils (%) (Auto) 0 % (0-3) Neutrophils # (Auto) 15.6 x10^3/uL (1.8-7.7) Lymphocytes # (Auto) 0.9 x10^3/uL (1.0-4.8) Monocytes # (Auto) 0.9 x10^3/uL (0.0-1.1) Eosinophils # (Auto) 0.0 x10^3/uL (0.0-0.7) Basophils # (Auto) 0.0 x10^3/uL (0.0-0.2) Segmented Neutrophils % 74 % (35-66) Band Neutrophils % 17 % (0-9) Lymphocytes % 8 % (24-48) Monocytes % 1 % (0-10) Toxic Granulation Slight Platelet Estimate Adequate (ADEQUATE) Sodium Level 132 mmol/L (136-145) 136 mmol/L (136-145) Potassium Level 3.5 mmol/L (3.5-5.1) 3.9 mmol/L (3.5-5.1) Chloride Level 100 mmol/L (98-107) 103 mmol/L (98-107) Carbon Dioxide Level 25 mmol/L (21-32) 25 mmol/L (21-32) Anion Gap 7 (6-14) 8 (6-14) Blood Urea Nitrogen 13 mg/dL (8-26) 16 mg/dL (8-26) Creatinine 1.3 mg/dL (0.7-1.3) 1.4 mg/dL (0.7-1.3) Estimated GFR (Cockcroft-Gault) 76.5 70.2 BUN/Creatinine Ratio 10 (6-20) Glucose Level 121 mg/dL (70-99) 90 mg/dL (70-99) Lactic Acid Level 1.5 mmol/L (0.4-2.0) 1.7 mmol/L (0.4-2.0) Calcium Level 8.7 mg/dL (8.5-10.1) 8.4 mg/dL (8.5-10.1) Total Bilirubin 1.0 mg/dL (0.2-1.0) Aspartate Amino Transf (AST/SGOT) 22 U/L (15-37) Alanine Aminotransferase (ALT/SGPT) 18 U/L (16-63) Alkaline Phosphatase 52 U/L (46-116) Total Protein 8.8 g/dL (6.4-8.2) Albumin 3.5 g/dL (3.4-5.0) Albumin/Globulin Ratio 0.7 (1.0-1.7) Influenza Type A Antigen Negative (NEGATIVE) Influenza Type B Antigen Negative (NEGATIVE) Urine Collection Type Unknown Urine Color Yellow Urine Clarity Clear Urine pH 8.5 Urine Specific [place] 1.020 Urine Protein Negative mg/dL (NEG-TRACE) Urine Glucose (UA) Negative mg/dL (NEG) Urine Ketones (Stick) Trace mg/dL (NEG) Urine Blood Negative (NEG) Urine Nitrite Negative (NEG) Urine Bilirubin Negative (NEG) Urine Urobilinogen Dipstick 1.0 mg/dL (0.2 mg/dL) Urine Leukocyte Esterase Small (NEG) Urine RBC Occ /HPF (0-2) Urine WBC 5-10 /HPF (0-4) Urine Squamous Epithelial Cells Occ /LPF Urine Bacteria 0 /HPF (0-FEW) Urine Mucus Slight /LPF Urine Opiates Screen Pos (NEG) Urine Methadone Screen Neg (NEG) Urine Barbiturates Neg (NEG) Urine Phencyclidine Screen Neg (NEG) Urine Amphetamine/Methamphetamine Neg (NEG) Urine Benzodiazepines Screen Neg (NEG) Urine Cocaine Screen Neg (NEG) Urine Cannabinoids Screen Neg (NEG) Urine Ethyl Alcohol Neg (NEG) Prothrombin Time 17.8 SEC (11.7-14.0) Prothromb Time International Ratio 1.5 (0.8-1.1) Activated Partial Thromboplast Time 32 SEC (24-38) Fibrinogen 567 mg/dL (200-440) Procalcitonin 6.25 ng/mL (0.00-0.10) Test 09/23/19 07:00 White Blood Count 19.1 x10^3/uL (4.0-11.0) Red Blood Count 3.66 x10^6/uL (4.30-5.70) Hemoglobin 10.9 g/dL (13.0-17.5) Hematocrit 33.1 % (39.0-53.0) Mean Corpuscular Volume 90 fL (79-100) Mean Corpuscular Hemoglobin 30 pg (25-35) Mean Corpuscular Hemoglobin Concent 33 g/dL (31-37) Red Cell Distribution Width 13.3 % (11.5-14.5) Platelet Count 191 x10^3/uL (140-400) Neutrophils (%) (Auto) 87 % (31-73) Lymphocytes (%) (Auto) 7 % (24-48) Monocytes (%) (Auto) 6 % (0-9) Eosinophils (%) (Auto) 0 % (0-3) Basophils (%) (Auto) 0 % (0-3) Neutrophils # (Auto) 16.6 x10^3/uL (1.8-7.7) Lymphocytes # (Auto) 1.4 x10^3/uL (1.0-4.8) Monocytes # (Auto) 1.0 x10^3/uL (0.0-1.1) Eosinophils # (Auto) 0.0 x10^3/uL (0.0-0.7) Basophils # (Auto) 0.0 x10^3/uL (0.0-0.2) Treponema pallidum Antibody Reactive (Nonreactive) Hepatitis A IgM Antibody Nonreactive (Nonreactive) Hepatitis B Surface Antigen Nonreactive (Nonreactive) Hepatitis B Core IgM Antibody Nonreactive (Nonreactive) Hepatitis C IgG Antibody Nonreactive (Nonreactive) Laboratory Tests Test 09/23/19 07:00 White Blood Count 19.1 x10^3/uL (4.0-11.0) Red Blood Count 3.66 x10^6/uL (4.30-5.70) Hemoglobin 10.9 g/dL (13.0-17.5) Hematocrit 33.1 % (39.0-53.0) Mean Corpuscular Volume 90 fL (79-100) Mean Corpuscular Hemoglobin 30 pg (25-35) Mean Corpuscular Hemoglobin Concent 33 g/dL (31-37) Red Cell Distribution Width 13.3 % (11.5-14.5) Platelet Count 191 x10^3/uL (140-400) Neutrophils (%) (Auto) 87 % (31-73) Lymphocytes (%) (Auto) 7 % (24-48) Monocytes (%) (Auto) 6 % (0-9) Eosinophils (%) (Auto) 0 % (0-3) Basophils (%) (Auto) 0 % (0-3) Neutrophils # (Auto) 16.6 x10^3/uL (1.8-7.7) Lymphocytes # (Auto) 1.4 x10^3/uL (1.0-4.8) Monocytes # (Auto) 1.0 x10^3/uL (0.0-1.1) Eosinophils # (Auto) 0.0 x10^3/uL (0.0-0.7) Basophils # (Auto) 0.0 x10^3/uL (0.0-0.2) Treponema pallidum Antibody Reactive (Nonreactive) Hepatitis A IgM Antibody Nonreactive (Nonreactive) Hepatitis B Surface Antigen Nonreactive (Nonreactive) Hepatitis B Core IgM Antibody Nonreactive (Nonreactive) Hepatitis C IgG Antibody Nonreactive (Nonreactive) Brief Hospital Course Mr. Fuller is a 34 old AA male with no past medical admitted for left buttock abscess, underwent I and D by GS , Stable for home pO abx . 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[employer] consults: DAVID and ID Proc: I and D left buttock 09.21.2019 Discharge Information Condition at Discharge: Improved, Stable Disposition/Orders: D/C to Home Scheduled PRN Hydrocodone Bit/Acetaminophen (Hydrocodone-Apap 5-325 ) 1 Tab Tablet, 1 TAB PO PRN Q4HRS PRN for MODERATE PAIN 4-6, #10 Prescribed by: RUFINO JOSEPH on 09/23/19 1129 Discontinued Medications Info (No Known Medications Prior To Admisstion) Each, 1 EACH MC 1X for none, (Reported) Entered as Reported by: HUGO YORK on 09/22/19413 Last Taken: UNKNOWN on Unknown Date & Time Last Action: New Order on 09/22/19413 by RUFINO SOW MD Sep 23, 2019 11:31
[2019-09-23] MEDS ORDERED: cefTRIAXone IV Push 2 GM VIAL. IVP SCH (12:30)
[2019-09-23] MEDS ORDERED: CIPR500S2 PO (14:12)
[2019-09-23] MEDS ORDERED: METR500T PO (14:13)
[2019-09-23] MEDS ORDERED: DOXY100C2 PO (14:15)
--- NOTE | 2019-09-23 14:34 | NUR ---
Discharge Note: DOUGLAS HERNÁNDEZ HODGES Discharge instructions and discharge home medications reviewed with Patient and a copy given. All questions have been answered and understanding verbalized. The following instructions and handouts were given antibiotic medication Discontinued IV lines Patient discharged home with all personal belongings
--- NOTE | 2019-09-26 10:36 | NUR ---
IP: Pt has a + RPR. Notified Dr. Musa Sotelo. Instructed to contact pt with results. Contacted Mr. Fuller and instructed him to go to local Health department for follow up and treatment. Mr Fuller verbalized understanding.
[2019-09-27 14:10] LABS: HIV-1 AB DIFFERENTIATION Positive (Negative)
== END 2019-09-23 15:30 | disposition home or self-care (01) | DRG 854 ==
LOC: ER 15:42 → 4 NORTH 18:29
PROVIDERS: ADMIT Family Medicine; ATTEND Family Medicine
PROC: 0D9P0ZZ Drainage of Rectum, Open Approach (ICD-10-PCS; principal; 2019-09-22 10:00)
DX: A41.9 Sepsis, unspecified organism (principal); K61.1 Rectal abscess; L02.31 Cutaneous abscess of buttock; L03.317 Cellulitis of buttock; F17.210 Nicotine dependence, cigarettes, uncomplicated; K76.9 Liver disease, unspecified; D64.9 Anemia, unspecified; Z88.0 Allergy status to penicillin; Z82.49 Family history of ischemic heart disease and other diseases of the circulatory system; I95.9 Hypotension, unspecified
CPT/HCPCS: 36415; 74177; 80048; 80053; 80307; 81001; 83605; 84145; 85007; 85025; 85027; 85384; 85610; 85730; 86592; 86593; 86703; 86705; 86709; 86803; 87040; 87071; 87075; 87086; 87340; 87491; 87591; 87804; J0330; J0696; J1100; J1170; J1200; J1650; J1885; J1956; J2001; J2185; J2250; J2270; J2370; J2405; J2704; J3010; J3490; J7030; Q9967; A4461; G0378